=== PATIENT | male | born 1975 | race Two or more races ===

== ENCOUNTER 2018-12-02 20:42 | Emergency (ER) | payer SELFPAY ==
[~2018-12-02] VITALS: Ht 182.9 cm; Wt 113.4 kg
[2018-12-02] MEDS ORDERED: cloNIDine HCL 0.1 MG TAB PO ONE (21:45)
[2018-12-03 00:40] VITALS: BP 139/95
== END 2018-12-03 02:00 | disposition left against medical advice (07) ==
LOC: ER 20:42
DX: I10 Essential (primary) hypertension (principal); F17.210 Nicotine dependence, cigarettes, uncomplicated; Z76.0 Encounter for issue of repeat prescription; Z53.29 Procedure and treatment not carried out because of patient's decision for other reasons
CPT/HCPCS: 93005